=== PATIENT | female | born 1940 | race Caucasian/White ===

== ENCOUNTER 2016-05-03 10:51 | Day surgery (SDC) | payer OTHER ==
[~2016-05-03] VITALS: Ht 166.4 cm; Wt 92.0 kg
[~2016-05-03 10:51] MED LIST: AMLO5TAB2 PO; AMLO5TAB4 PO; ASPI-496 PO; ASPI-650 PO; ASPI325T4 PO; CARV6.2512 PO; CHOL500014 PO; CINN500C2 PO; FERR325T20 PO; GEMF600T3 PO; GLIP2.5T3 PO; GLIP5TAB10 PO; HYDR-3343 PO; HYDR25TA6 PO; Hydralazine Hcl PO; LEVO137T3 PO; LEVO150T PO; LEVO150T5 PO; LEVO500T33 PO; LISI-170 PO; LISI1TAB3 PO; NITR0.4T SL; NITR0.4T8 SL; PRAV20TA2 PO; PRED10TA PO; ROSU10TA PO; SEVE800T PO; SODI650T PO; TRAM-28 PO
[2016-05-03] MEDS ORDERED: BUPIVACAINE/PF-EPI 0.5% 1:200K ONE (11:37)
[2016-05-03] MEDS ORDERED: HEPARIN 1,000 UNITS/ML, 10ML ONE (11:37)
[2016-05-03] MEDS ORDERED: PROTAMINE SULFATE 10 MG/ML, 5ML ONE (11:37)
[2016-05-03] MEDS ORDERED: THROMBIN 5,000 UNIT VIAL TP ONE (11:37)
[2016-05-03] MEDS ORDERED: BUPIVACAINE/PF 0.5% ONE (11:37)
[2016-05-03] MEDS ORDERED: SODIUM CHLORIDE 0.9% 1,000 ML IV SCH (12:02)
[2016-05-03 12:03] VITALS: BP 120/74
[2016-05-03] MEDS ORDERED: CARV12.52 PO (12:19)
[2016-05-03] MEDS ORDERED: FENTANYL PF 100 MCG/2ML ONE ×2 (14:03→15:35)
[2016-05-03] MEDS ORDERED: PROPOFOL 10 MG/ML, 20ML ONE (14:21)
[2016-05-03] MEDS ORDERED: EPHEDRINE 50 MG/ML, 1ML ONE (14:21)
[2016-05-03] MEDS ORDERED: ROCURONIUM 10 MG/ML ONE (14:21)
[2016-05-03] MEDS ORDERED: CEFAZOLIN 1,000 MG ONE (14:21)
[2016-05-03] MEDS ORDERED: ONDANSETRON 2MG/ML, 2ML ONE (14:21)
[2016-05-03] MEDS ORDERED: BUPIVACAINE/PF-EPI 0.5% 1:200K INFIL ONE (14:47)
[2016-05-03] MEDS ORDERED: HEPARIN 1,000 UNITS/ML, 10ML IV ONE (14:48)
[2016-05-03] MEDS ORDERED: ACETAMINOPHEN 650 MG/20.3 ML UDC ONE (15:40)
[2016-05-03] MEDS ORDERED: OXYcodone 5 MG/5 ML ORAL.SOL UDC PO PRN ×2 (16:00→17:30)
[2016-05-03] MEDS ORDERED: ALBUTEROL/IPRATROPIUM 2.5MG/0.5MG, 3 ML NPPB PRN (16:00)
[2016-05-03] MEDS ORDERED: HYDROmorphone 1 MG/ML, 1ML IV PRN (16:00)
[2016-05-03] MEDS ORDERED: ACETAMINOPHEN 325 MG TABLET PO PRN (16:00)
[2016-05-03] MEDS ORDERED: METOPROLOL 1 MG/ML, 5ML IV PRN (16:00)
[2016-05-03] MEDS ORDERED: FENTANYL PF 100 MCG/2ML IV PRN (16:00)
== END 2016-05-03 18:05 | disposition home or self-care (01) ==
LOC: OUT 10:51
PROVIDERS: ATTEND Surgery Vascular Surgery
DX: T82.41XA Breakdown (mechanical) of vascular dialysis catheter, initial encounter (principal); T82.590A Other mechanical complication of surgically created arteriovenous fistula, initial encounter; T85.691A Other mechanical complication of intraperitoneal dialysis catheter, initial encounter; I25.10 Atherosclerotic heart disease of native coronary artery without angina pectoris; E11.22 Type 2 diabetes mellitus with diabetic chronic kidney disease; I12.0 Hypertensive chronic kidney disease with stage 5 chronic kidney disease or end stage renal disease; N18.6 End stage renal disease; Z99.2 Dependence on renal dialysis; I25.2 Old myocardial infarction; Z98.42 Cataract extraction status, left eye; Z98.41 Cataract extraction status, right eye; Z96.1 Presence of intraocular lens; E89.0 Postprocedural hypothyroidism; F17.210 Nicotine dependence, cigarettes, uncomplicated; Z95.5 Presence of coronary angioplasty implant and graft; Y83.2 Surgical operation with anastomosis, bypass or graft as the cause of abnormal reaction of the patient, or of later complication, without mention of misadventure at the time of the procedure; Y83.8 Other surgical procedures as the cause of abnormal reaction of the patient, or of later complication, without mention of misadventure at the time of the procedure
CPT/HCPCS: 36415; 36581; 37607; 49422; 71010; 77001; 80047; 82962; C1751; J0690; J1644; J2405; J2704; J3010; J3490; J7030; 76000; J2720

== ENCOUNTER 2016-11-19 15:37 | Inpatient (IN) | payer OTHER ==
[~2016-11-19] VITALS: Ht 167.6 cm; Wt 76.8 kg
[~2016-11-19 15:37] MED LIST changes: +ASPI325T17 PO; -ASPI325T4 PO; +CARV12.52 PO; -CHOL500014 PO; +CHOL500045 PO; +FERR325T18 PO; -FERR325T20 PO; -LEVO500T33 PO; +LEVO500T47 PO; +NITR0.4T28 SL; -NITR0.4T8 SL; -SEVE800T PO; +SEVE800T7 PO; -TRAM-28 PO; +TRAM-47 PO
[2016-11-19] MEDS ORDERED: SODIUM CHLORIDE FLUSH 10ML SYR IVF ONE (16:00)
[2016-11-19 16:35] LABS: HEMATOCRIT 30.7 % (34.6-47.8); HEMOGLOBIN 10.6 g/dL (11.7-16.4); WHITE BLOOD COUNT 8.3 x10^3/uL (3.4-10)
[2016-11-19 16:46] LABS: BLOOD UREA NITROGEN 52 mg/dL (7-18)
[2016-11-19 16:52] LABS: ASPARTATE AMINO TRANSFERASE 12 U/L (15-37)
[2016-11-19 16:53] LABS: IS PT STATUS REG ER OR PRE ER? YES
[2016-11-19] MEDS ORDERED: MORPHINE SULFATE 4 MG/ML, 1ML ONE ×2 (17:15→19:20)
[2016-11-19] MEDS ORDERED: MORPHINE SULFATE 4 MG/ML, 1ML IVPush PRN (17:30)
[2016-11-19] MEDS ORDERED: iron DIALYCATH (18:01)
[2016-11-19] MEDS ORDERED: steroid PO (18:01)
[2016-11-19] MEDS ORDERED: ASPI-650 PO (18:01)
[2016-11-19] MEDS ORDERED: cinnamon PO (18:01)
[2016-11-19] MEDS ORDERED: PRAV40TA2 PO (18:01)
[2016-11-19] MEDS ORDERED: LEVO150T PO (18:01)
[2016-11-19] MEDS ORDERED: BISACODYL 10 MG SUPP PR PRN (18:30)
[2016-11-19] MEDS ORDERED: ACETAMINOPHEN 325 MG TABLET PO PRN (18:30)
[2016-11-19] MEDS ORDERED: ONDANSETRON 2MG/ML, 2ML IVPush PRN (18:30)
[2016-11-19] MEDS ORDERED: POLYETHYLENE GLYCOL 17 GM PACKET PO PRN (18:30)
[2016-11-19] MEDS ORDERED: GLUCAGON 1 MG IM PRN (18:30)
[2016-11-19] MEDS ORDERED: DEXTROSE 50%, 50ML SYRINGE IVPush PRN (18:30)
[2016-11-19] MEDS ORDERED: NITROGLYCERIN 0.4 MG BOTTLE (25 TABS) SL PRN (18:30)
[2016-11-19] MEDS ORDERED: morphine SULFATE 10 MG/ML, 1ML IVPush PRN (18:30)
[2016-11-19] MEDS ORDERED: DEXTROSE 4 GM TAB.CHEW PO PRN (18:30)
[2016-11-19] MEDS ORDERED: ONDANSETRON 2MG/ML, 2ML ONE (19:20)
[2016-11-19] MEDS ORDERED: CARVEDILOL 12.5 MG TABLET PO SCH (21:00)
[2016-11-19] MEDS ORDERED: PRAVASTATIN 40 MG TABLET PO SCH (21:00)
[2016-11-19 21:02] VITALS: BP 111/71
[2016-11-19] MEDS: SODIUM CHLORIDE FLUSH 10ML SYR IVF SCH ×2 (21:17→21:21)
[2016-11-19] MEDS: PLEASE ENTER WEIGHT MC SCH ×2 (21:17→21:24)
[2016-11-19] MEDS: SEVELAMER 800MG TABLET PO SCH (21:37)
[2016-11-19] MEDS ORDERED: PRAVASTATIN 40 MG PO SCH (22:00)
[2016-11-19] MEDS: HEPARIN 5,000 UNITS/ML, 1ML SQ SCH (22:29)
[2016-11-19] MEDS: INSULIN ASPART 100 UNITS/ML, PEN SQ-INSULIN SCH (22:29)
[2016-11-19] MEDS: PRAVASTATIN 40 MG TABLET HOMEMEDPO SCH (22:29)
[2016-11-19 23:13] LABS: IS PT STATUS REG ER OR PRE ER? NO
[2016-11-20 03:53] VITALS: BP 100/64
[2016-11-20] MEDS: HEPARIN 5,000 UNITS/ML, 1ML SQ SCH ×4 (04:23→22:35)
[2016-11-20 05:40] LABS: HEMATOCRIT 28.1 % (34.6-47.8); HEMOGLOBIN 9.6 g/dL (11.7-16.4); WHITE BLOOD COUNT 7.3 x10^3/uL (3.4-10)
[2016-11-20 05:53] LABS: BLOOD UREA NITROGEN 53 mg/dL (7-18)
[2016-11-20 06:00] LABS: ASPARTATE AMINO TRANSFERASE 12 U/L (15-37)
[2016-11-20 06:10] LABS: IS PT STATUS REG ER OR PRE ER? NO
[2016-11-20] MEDS: INSULIN ASPART 100 UNITS/ML, PEN SQ-INSULIN SCH ×4 (07:53→20:22)
[2016-11-20] MEDS: SEVELAMER 800MG TABLET PO SCH ×3 (08:00→17:31)
[2016-11-20] MEDS ORDERED: REGADENOSON 0.4 MG/5 ML SYRINGE ONE (08:14)
[2016-11-20] MEDS: SENNA/DOCUSATE TABLET PO SCH (08:23)
[2016-11-20 08:28] VITALS: BP 96/60
[2016-11-20] MEDS: CARVEDILOL 12.5 MG TABLET HOMEMEDPO SCH ×2 (08:37→20:25)
[2016-11-20] MEDS: ASPIRIN 81 MG TABLET EC HOMEMEDPO SCH (08:39)
[2016-11-20] MEDS: SODIUM CHLORIDE FLUSH 10ML SYR IVF SCH ×4 (08:39→20:23)
[2016-11-20] MEDS: LEVOTHYROXINE 150 MCG TABLET HOMEMEDPO SCH (08:39)
[2016-11-20] MEDS ORDERED: LEVOTHYROXINE 150 MCG PO SCH (09:00)
[2016-11-20] MEDS ORDERED: VITAMIN D3 5000 UNIT PO SCH (09:00)
[2016-11-20] MEDS ORDERED: ASPIRIN 81 MG PO SCH (09:00)
[2016-11-20] MEDS ORDERED: COREG 12.5 MG PO SCH (09:00)
[2016-11-20] MEDS ORDERED: AMLODIPINE 5 MG TABLET PO SCH ×2 (09:00)
[2016-11-20] MEDS ORDERED: LIDOCAINE/PRILOCAINE CRM W/TEG 5GM TP ONE (12:00)
[2016-11-20] MEDS ORDERED: LIDOCAINE/PRILOCAINE CRM W/TEG 5GM TP PRN (18:00)
[2016-11-20 19:55] VITALS: BP 118/68
[2016-11-20] MEDS: PRAVASTATIN 40 MG TABLET HOMEMEDPO SCH (20:25)
[2016-11-20] MEDS: CHOLECALCIFEROL 1,000 UNIT TABLET HOMEMEDPO SCH (20:25)
[2016-11-21 02:00] VITALS: BP 118/67
[2016-11-21] MEDS ORDERED: MAALOX/HYOSCYAMINE/LIDOCAINE 45 ML BTL PO ONE (05:30)
[2016-11-21 05:49] LABS: HEMATOCRIT 29.4 % (34.6-47.8); HEMOGLOBIN 10.4 g/dL (11.7-16.4); WHITE BLOOD COUNT 8.7 x10^3/uL (3.4-10)
[2016-11-21 05:58] LABS: BLOOD UREA NITROGEN 33 mg/dL (7-18)
[2016-11-21 06:08] LABS: ASPARTATE AMINO TRANSFERASE 18 U/L (15-37); FERRITIN 301.7 ng/mL (8-252); TOTAL IRON BINDING CAPACITY 246 mcg/dL (250-450)
[2016-11-21] MEDS: INSULIN ASPART 100 UNITS/ML, PEN SQ-INSULIN SCH ×2 (07:00→10:56)
[2016-11-21] MEDS: SENNA/DOCUSATE TABLET PO SCH (07:11)
[2016-11-21 07:20] VITALS: BP 96/56
[2016-11-21] MEDS: LEVOTHYROXINE 150 MCG TABLET HOMEMEDPO SCH (08:00)
[2016-11-21] MEDS ORDERED: LEVOTHYROXINE 175 MCG TABLET HOMEMEDPO SCH (08:37)
[2016-11-21] MEDS: SODIUM CHLORIDE FLUSH 10ML SYR IVF SCH ×2 (09:00→09:14)
[2016-11-21] MEDS: CHOLECALCIFEROL 1,000 UNIT TABLET HOMEMEDPO SCH (09:14)
[2016-11-21] MEDS: ASPIRIN 81 MG TABLET EC HOMEMEDPO SCH (09:15)
[2016-11-21] MEDS: SEVELAMER 800MG TABLET PO SCH ×2 (09:15→11:47)
[2016-11-21] MEDS: CARVEDILOL 12.5 MG TABLET HOMEMEDPO SCH (09:15)
[2016-11-21] MEDS ORDERED: OMEPRAZOLE 20 MG CAPSULE.DR PO SCH (09:30)
[2016-11-21] MEDS ORDERED: LEVO175T2 HOMEMEDPO (11:09)
== END 2016-11-21 13:45 | disposition home or self-care (01) | DRG 391 ==
LOC: ED 17:35 → EDIP 17:36 → ED 17:49 → 5SO 21:09 → DCLOUNGE 11-21 13:20
PROVIDERS: ADMIT Hospitalist; ATTEND Hospitalist
DX: K21.9 Gastro-esophageal reflux disease without esophagitis (principal); N18.6 End stage renal disease; I13.2 Hypertensive heart and chronic kidney disease with heart failure and with stage 5 chronic kidney disease, or end stage renal disease; E11.22 Type 2 diabetes mellitus with diabetic chronic kidney disease; J44.1 Chronic obstructive pulmonary disease with (acute) exacerbation; E44.1 Mild protein-calorie malnutrition; J98.11 Atelectasis; E66.01 Morbid (severe) obesity due to excess calories; Z66 Do not resuscitate; I50.9 Heart failure, unspecified; D53.9 Nutritional anemia, unspecified; E78.5 Hyperlipidemia, unspecified; E89.0 Postprocedural hypothyroidism; F17.210 Nicotine dependence, cigarettes, uncomplicated; I25.10 Atherosclerotic heart disease of native coronary artery without angina pectoris; I25.2 Old myocardial infarction; Z83.3 Family history of diabetes mellitus; Z95.5 Presence of coronary angioplasty implant and graft; Z99.2 Dependence on renal dialysis; Z87.01 Personal history of pneumonia (recurrent); Z90.49 Acquired absence of other specified parts of digestive tract; Z90.710 Acquired absence of both cervix and uterus; Z91.041 Radiographic dye allergy status; Z68.27 Body mass index [BMI] 27.0-27.9, adult
CPT/HCPCS: 36415; 71010; 78452; 80053; 80061; 82306; 82607; 82728; 82746; 82962; 83036; 83540; 83550; 83970; 84100; 84439; 84443; 84484; 84550; 85025; 93005; 93017; 96374; 96375; J1644; J1815; J2405; J2785; A9502; C9898

== ENCOUNTER 2016-11-28 09:40 | Inpatient (IN) | payer OTHER ==
[~2016-11-28] VITALS: Ht 165.1 cm; Wt 88.8 kg
[~2016-11-28 09:40] MED LIST changes: +LEVO175T2 HOMEMEDPO; +PRAV40TA2 PO; +cinnamon PO; +iron DIALYCATH; +steroid PO
[2016-11-28] MEDS ORDERED: SODIUM CHLORIDE 0.9% 1,000 ML IV ONE (10:16)
[2016-11-28] MEDS ORDERED: FAMOTIDINE 20 MG/2 ML ONE (10:21)
[2016-11-28] MEDS ORDERED: MORPHINE SULFATE 4 MG/ML, 1ML ONE ×2 (10:21→12:42)
[2016-11-28] MEDS ORDERED: MAALOX/HYOSCYAMINE/LIDOCAINE 45 ML BTL ONE (10:21)
[2016-11-28] MEDS ORDERED: ONDANSETRON 2MG/ML, 2ML ONE (10:21)
[2016-11-28] MEDS: MORPHINE SULFATE 4 MG/ML, 1ML IVPush PRN ×2 (10:27→12:47)
[2016-11-28] MEDS ORDERED: MAALOX/HYOSCYAMINE/LIDOCAINE 45 ML BTL PO ONE (10:30)
[2016-11-28] MEDS ORDERED: SODIUM CHLORIDE 0.9% 1,000ML IVBOLUS ONE ×2 (10:30→11:30)
[2016-11-28] MEDS ORDERED: FAMOTIDINE 20 MG/2 ML IVP ONE (10:30)
[2016-11-28] MEDS ORDERED: ONDANSETRON 2MG/ML, 2ML IVPush ONE (10:30)
[2016-11-28 11:03] LABS: HEMATOCRIT 33.3 % (34.6-47.8); HEMOGLOBIN 11.4 g/dL (11.7-16.4); WHITE BLOOD COUNT 20.3 x10^3/uL (3.4-10)
[2016-11-28 11:14] LABS: ASPARTATE AMINO TRANSFERASE 121 U/L (15-37); BLOOD UREA NITROGEN 33 mg/dL (7-18)
[2016-11-28 11:38] LABS: DIFF TOTAL CELLS COUNTED 100 CELL DIFF
[2016-11-28 11:40] LABS: ANISOCYTOSIS 1+; POLYCHROMASIA 1+; VERIFY COUNTS? YES
[2016-11-28] MEDS ORDERED: CEFOTETAN PMX 2GM/50ML 50 ML IV ONE (12:30)
[2016-11-28] MEDS ORDERED: PHARMACY MAY ADJ FOR RENAL FX MC PRN (14:00)
[2016-11-28] MEDS ORDERED: SODIUM CHLORIDE 0.45% 1,000 ML IV SCH (15:00)
[2016-11-28] MEDS ORDERED: PROMETHAZINE 25 MG/ML, 1ML IM PRN (15:00)
[2016-11-28] MEDS: morphine SULFATE 10 MG/ML, 1ML IVPush PRN ×3 (15:03→19:36)
[2016-11-28] MEDS: PIPERACILLIN/TAZO/PMX 2.25GM 50 ML IV SCH ×2 (15:03→20:24)
[2016-11-28] MEDS ORDERED: INSULIN ASPART 100 UNITS/ML, PEN SQ-INSULIN SCH (16:00)
[2016-11-28 18:48] VITALS: BP 155/65
[2016-11-28] MEDS ORDERED: FAMOTIDINE 20 MG/2 ML IVPush SCH (21:00)
[2016-11-28] MEDS: INSULIN ASPART 100 UNITS/ML, PEN SQ-INSULIN SCH (21:39)
[2016-11-29 01:03] VITALS: BP 134/75
[2016-11-29] MEDS: morphine SULFATE 10 MG/ML, 1ML IVPush PRN ×4 (02:56→18:53)
[2016-11-29] MEDS: PIPERACILLIN/TAZO/PMX 2.25GM 50 ML IV SCH ×2 (02:56→09:30)
[2016-11-29] MEDS: INSULIN ASPART 100 UNITS/ML, PEN SQ-INSULIN SCH ×4 (02:56→21:00)
[2016-11-29 05:43] LABS: HEMOGLOBIN 10.3 g/dL (11.7-16.4); WHITE BLOOD COUNT 12.7 x10^3/uL (3.4-10)
[2016-11-29 05:47] LABS: ASPARTATE AMINO TRANSFERASE 51 U/L (15-37); BLOOD UREA NITROGEN 42 mg/dL (7-18)
[2016-11-29 07:02] VITALS: BP 138/70
[2016-11-29 08:17] LABS: HEP B SURF. AB 392.2 mIU/mL (0.0-10.0)
[2016-11-29] MEDS ORDERED: LEVOTHYROXINE 100 MCG INJ IVPush SCH (09:00)
[2016-11-29] MEDS: FAMOTIDINE 20 MG/2 ML IVPush SCH (09:30)
[2016-11-29 13:55] VITALS: BP 138/75
[2016-11-29] MEDS ORDERED: PIPERACILLIN/TAZO 2.25 GM in SODIUM CHLORIDE 0.9% 50 ML IV SCH (15:00)
[2016-11-29 19:03] VITALS: BP 128/73
[2016-11-29] MEDS ORDERED: PIPERACILLIN/TAZO(ZOSYN) 2.25 GM in NS 50 ML IVPB SCH (21:00)
[2016-11-29] MEDS: PIPERACILLIN/TAZO/PMX 2.25GM 50 ML IVPB SCH (21:31)
[2016-11-30 02:05] VITALS: BP 124/63
[2016-11-30] MEDS: PIPERACILLIN/TAZO/PMX 2.25GM 50 ML IVPB SCH ×3 (03:35→21:24)
[2016-11-30] MEDS: morphine SULFATE 10 MG/ML, 1ML IVPush PRN ×5 (03:46→20:20)
[2016-11-30 05:58] LABS: HEMOGLOBIN 10.2 g/dL (11.7-16.4); WHITE BLOOD COUNT 12.3 x10^3/uL (3.4-10)
[2016-11-30 06:32] LABS: ASPARTATE AMINO TRANSFERASE 20 U/L (15-37); BLOOD UREA NITROGEN 25 mg/dL (7-18); FERRITIN 630.1 ng/mL (8-252); TOTAL IRON BINDING CAPACITY 235 mcg/dL (250-450)
[2016-11-30 06:37] LABS: DIFF TOTAL CELLS COUNTED 100 CELL DIFF
[2016-11-30 06:38] LABS: VERIFY COUNTS? YES
[2016-11-30 06:39] LABS: ANISOCYTOSIS 1+
[2016-11-30 06:56] VITALS: BP 146/64
[2016-11-30] MEDS: FAMOTIDINE 20 MG/2 ML IVPush SCH (08:26)
[2016-11-30] MEDS: INSULIN ASPART 100 UNITS/ML, PEN SQ-INSULIN SCH ×4 (08:27→20:22)
[2016-11-30] MEDS: AMLODIPINE 5 MG TABLET PO SCH (09:00)
[2016-11-30] MEDS: CARVEDILOL 12.5 MG TABLET PO SCH ×2 (09:33→20:21)
[2016-11-30] MEDS: DOCUSATE 100 MG CAPSULE PO SCH ×2 (10:30→20:20)
[2016-11-30] MEDS ORDERED: BISACODYL 10 MG SUPP PR PRN (10:30)
[2016-11-30] MEDS ORDERED: SEVELAMER 800MG TABLET PO SCH (12:00)
[2016-11-30] MEDS: ONDANSETRON 2MG/ML, 2ML IVPush PRN ×2 (13:45→20:20)
[2016-11-30] MEDS: IRON SUCROSE COMPLEX 100MG/5ML IV SCH (13:48)
[2016-11-30 13:50] VITALS: BP 94/61
[2016-11-30] MEDS: SEVELAMER 800MG TABLET PO SCH (17:00)
[2016-11-30 19:18] VITALS: BP 105/64
[2016-11-30] MEDS: PRAVASTATIN 40 MG TABLET PO SCH (20:21)
[2016-12-01] MEDS: morphine SULFATE 10 MG/ML, 1ML IVPush PRN (00:16)
[2016-12-01 02:40] VITALS: BP 121/68
[2016-12-01] MEDS: PIPERACILLIN/TAZO/PMX 2.25GM 50 ML IVPB SCH ×3 (04:20→23:36)
[2016-12-01] MEDS: LEVOTHYROXINE 175 MCG TABLET HOMEMEDPO SCH (06:00)
[2016-12-01 06:20] LABS: HEMATOCRIT 27.7 % (34.6-47.8); HEMOGLOBIN 9.7 g/dL (11.7-16.4); WHITE BLOOD COUNT 12.5 x10^3/uL (3.4-10)
[2016-12-01 06:35] LABS: ASPARTATE AMINO TRANSFERASE 14 U/L (15-37); BLOOD UREA NITROGEN 46 mg/dL (7-18)
[2016-12-01] MEDS: INSULIN ASPART 100 UNITS/ML, PEN SQ-INSULIN SCH ×4 (07:00→21:00)
[2016-12-01] MEDS ORDERED: FENTANYL PF 100 MCG/2ML ONE ×2 (07:03)
[2016-12-01] MEDS ORDERED: MIDAZOLAM 1 MG/ML, 2ML ONE (07:03)
[2016-12-01] MEDS ORDERED: PROPOFOL 10 MG/ML, 20ML ONE (07:04)
[2016-12-01] MEDS ORDERED: DEXAMETHASONE 4 MG/ML, 1ML ONE (07:04)
[2016-12-01] MEDS ORDERED: ROCURONIUM 10 MG/ML ONE (07:04)
[2016-12-01] MEDS ORDERED: ONDANSETRON 2MG/ML, 2ML ONE (07:04)
[2016-12-01] MEDS ORDERED: SUCCINYLCHOLINE 20 MG/ML, 10ML ONE (07:04)
[2016-12-01] MEDS ORDERED: BUPIVACAINE/PF 0.5% ONE (07:06)
[2016-12-01] MEDS ORDERED: EPINEPHRINE 1 MG/ML, 1ML ONE (07:06)
[2016-12-01] MEDS ORDERED: BUPIVACAINE/PF-EPI 0.5% 1:200K INFIL ONE (07:38)
[2016-12-01] MEDS ORDERED: hydrALAzine 20 MG/ML, 1ML IV PRN (08:00)
[2016-12-01] MEDS ORDERED: LABETALOL 5MG/ML, 20ML IV PRN (08:00)
[2016-12-01] MEDS ORDERED: ACETAMINOPHEN 325 MG TABLET PO PRN (08:00)
[2016-12-01] MEDS ORDERED: OXYcodone 5 MG/5 ML ORAL.SOL UDC PO PRN (08:00)
[2016-12-01] MEDS ORDERED: HYDROmorphone 1 MG/ML, 1ML IV PRN (08:00)
[2016-12-01] MEDS: SEVELAMER 800MG TABLET PO SCH ×3 (08:00→19:30)
[2016-12-01] MEDS ORDERED: ONDANSETRON 2MG/ML, 2ML IVPush PRN (08:00)
[2016-12-01] MEDS ORDERED: FENTANYL PF 100 MCG/2ML IV PRN (08:00)
[2016-12-01] MEDS: CARVEDILOL 12.5 MG TABLET PO SCH ×2 (09:00→22:10)
[2016-12-01] MEDS: DOCUSATE 100 MG CAPSULE PO SCH ×2 (09:00→22:10)
[2016-12-01] MEDS: AMLODIPINE 5 MG TABLET PO SCH (09:00)
[2016-12-01] MEDS: FAMOTIDINE 20 MG/2 ML IVPush SCH (09:00)
[2016-12-01] MEDS ORDERED: OXYcodone 5 MG/5 ML ORAL.SOL UDC ONE (09:35)
[2016-12-01 13:26] VITALS: BP 109/68
[2016-12-01 20:22] VITALS: BP 122/72
[2016-12-01] MEDS: PRAVASTATIN 40 MG TABLET PO SCH (22:10)
[2016-12-01] MEDS: IRON SUCROSE COMPLEX 100MG/5ML IV SCH (22:11)
[2016-12-02 00:50] VITALS: BP 131/62
[2016-12-02] MEDS: LEVOTHYROXINE 175 MCG TABLET HOMEMEDPO SCH (06:00)
[2016-12-02 06:53] LABS: HEMATOCRIT 26.8 % (34.6-47.8); HEMOGLOBIN 9.2 g/dL (11.7-16.4); WHITE BLOOD COUNT 10.4 x10^3/uL (3.4-10)
[2016-12-02] MEDS: INSULIN ASPART 100 UNITS/ML, PEN SQ-INSULIN SCH ×4 (07:00→21:00)
[2016-12-02 07:07] LABS: BLOOD UREA NITROGEN 32 mg/dL (7-18)
[2016-12-02 08:00] VITALS: BP 149/66
[2016-12-02] MEDS: SEVELAMER 800MG TABLET PO SCH ×3 (08:00→16:58)
[2016-12-02] MEDS: FAMOTIDINE 20 MG/2 ML IVPush SCH (08:51)
[2016-12-02] MEDS: AMLODIPINE 5 MG TABLET PO SCH (08:52)
[2016-12-02] MEDS: DOCUSATE 100 MG CAPSULE PO SCH ×2 (08:52→21:07)
[2016-12-02] MEDS: CARVEDILOL 12.5 MG TABLET PO SCH ×2 (08:52→21:07)
[2016-12-02] MEDS ORDERED: MORPHINE SULFATE 4 MG/ML, 1ML ONE ×4 (09:14→17:23)
[2016-12-02] MEDS: morphine SULFATE 10 MG/ML, 1ML IVPush PRN ×5 (09:16→20:35)
[2016-12-02] MEDS: PIPERACILLIN/TAZO/PMX 2.25GM 50 ML IVPB SCH ×2 (12:28→23:41)
[2016-12-02] MEDS: HYDROcodone/APAP 5/325 TABLET PO PRN ×3 (12:28→21:11)
[2016-12-02 12:46] VITALS: BP 118/67
[2016-12-02 20:03] VITALS: BP 145/78
[2016-12-02] MEDS: IRON SUCROSE COMPLEX 100MG/5ML IV SCH (20:36)
[2016-12-02] MEDS: PRAVASTATIN 40 MG TABLET PO SCH (21:00)
[2016-12-02] MEDS ORDERED: FAMOTIDINE 20 MG TABLET PO SCH (22:00)
[2016-12-02] MEDS ORDERED: OXYcodone IR 5MG TABLET PO PRN (22:00)
[2016-12-03 01:35] VITALS: BP 135/71
[2016-12-03 04:52] LABS: HEMATOCRIT 27.8 % (34.6-47.8); HEMOGLOBIN 9.7 g/dL (11.7-16.4); WHITE BLOOD COUNT 10.6 x10^3/uL (3.4-10)
[2016-12-03 05:03] LABS: BLOOD UREA NITROGEN 45 mg/dL (7-18)
[2016-12-03] MEDS: morphine SULFATE 10 MG/ML, 1ML IVPush PRN (05:12)
[2016-12-03] MEDS: LEVOTHYROXINE 175 MCG TABLET HOMEMEDPO SCH (05:13)
[2016-12-03] MEDS: CALCIUM CARBONATE 500 MG TAB.CHEW PO PRN (05:13)
[2016-12-03 05:40] LABS: DIFF TOTAL CELLS COUNTED 100 CELL DIFF
[2016-12-03 05:42] LABS: VERIFY COUNTS? YES
[2016-12-03 05:43] LABS: ANISOCYTOSIS 1+
[2016-12-03] MEDS: INSULIN ASPART 100 UNITS/ML, PEN SQ-INSULIN SCH ×4 (07:00→19:54)
[2016-12-03 07:43] VITALS: BP 125/55
[2016-12-03] MEDS: SEVELAMER 800MG TABLET PO SCH ×3 (08:00→18:21)
[2016-12-03] MEDS: DOCUSATE 100 MG CAPSULE PO SCH ×2 (08:20→20:11)
[2016-12-03] MEDS: AMLODIPINE 5 MG TABLET PO SCH (08:20)
[2016-12-03] MEDS: CARVEDILOL 12.5 MG TABLET PO SCH ×2 (08:20→20:11)
[2016-12-03] MEDS: FAMOTIDINE 20 MG/2 ML IVPush SCH (08:20)
[2016-12-03] MEDS: PIPERACILLIN/TAZO/PMX 2.25GM 50 ML IVPB SCH ×2 (11:26→23:33)
[2016-12-03 12:45] VITALS: BP 130/52
[2016-12-03 19:07] VITALS: BP 146/75
[2016-12-03 20:09] VITALS: BP 118/69
[2016-12-03] MEDS: IRON SUCROSE COMPLEX 100MG/5ML IV SCH (20:11)
[2016-12-03] MEDS: PRAVASTATIN 40 MG TABLET PO SCH (20:11)
[2016-12-04 01:42] VITALS: BP 93/59
[2016-12-04 05:15] LABS: HEMATOCRIT 26.1 % (34.6-47.8); HEMOGLOBIN 9.1 g/dL (11.7-16.4); WHITE BLOOD COUNT 12.8 x10^3/uL (3.4-10)
[2016-12-04 05:21] LABS: ASPARTATE AMINO TRANSFERASE 32 U/L (15-37); BLOOD UREA NITROGEN 21 mg/dL (7-18)
[2016-12-04] MEDS: LEVOTHYROXINE 175 MCG TABLET HOMEMEDPO SCH (05:42)
[2016-12-04 05:52] LABS: DIFF TOTAL CELLS COUNTED 100 CELL DIFF
[2016-12-04 05:53] LABS: VERIFY COUNTS? YES
[2016-12-04] MEDS: INSULIN ASPART 100 UNITS/ML, PEN SQ-INSULIN SCH ×4 (07:00→21:00)
[2016-12-04] MEDS: SEVELAMER 800MG TABLET PO SCH ×3 (08:00→16:36)
[2016-12-04 08:20] VITALS: BP 129/66
[2016-12-04] MEDS: CARVEDILOL 12.5 MG TABLET PO SCH ×2 (09:00→21:00)
[2016-12-04] MEDS: AMLODIPINE 5 MG TABLET PO SCH (09:00)
[2016-12-04] MEDS: DOCUSATE 100 MG CAPSULE PO SCH (09:00)
[2016-12-04] MEDS: FAMOTIDINE 20 MG TABLET PO SCH (10:00)
[2016-12-04] MEDS: PIPERACILLIN/TAZO/PMX 2.25GM 50 ML IVPB SCH ×2 (12:58→23:30)
[2016-12-04 13:50] VITALS: BP 152/72
[2016-12-04] MEDS ORDERED: MORPHINE SULFATE 4 MG/ML, 1ML IVPush PRN (14:00)
[2016-12-04] MEDS: BISACODYL 10 MG SUPP PR SCH (14:27)
[2016-12-04] MEDS: MORPHINE SULFATE 4 MG/ML, 1ML IVPush PRN ×2 (18:23→22:37)
[2016-12-04 20:24] VITALS: BP 129/70
[2016-12-04] MEDS ORDERED: LABETALOL 5MG/ML, 20ML IVPush PRN (20:30)
[2016-12-04] MEDS: PRAVASTATIN 40 MG TABLET PO SCH (21:00)
[2016-12-04] MEDS: IRON SUCROSE COMPLEX 100MG/5ML IV SCH (21:19)
[2016-12-05 02:00] VITALS: BP 116/70
[2016-12-05] MEDS: LEVOTHYROXINE 175 MCG TABLET HOMEMEDPO SCH (04:41)
[2016-12-05] MEDS: MORPHINE SULFATE 4 MG/ML, 1ML IVPush PRN (05:43)
[2016-12-05] MEDS: INSULIN ASPART 100 UNITS/ML, PEN SQ-INSULIN SCH ×4 (07:00→20:14)
[2016-12-05 07:41] VITALS: BP 135/72
[2016-12-05] MEDS: SEVELAMER 800MG TABLET PO SCH ×3 (08:00→17:00)
[2016-12-05] MEDS: FAMOTIDINE 20 MG TABLET PO SCH (09:00)
[2016-12-05] MEDS: AMLODIPINE 5 MG TABLET PO SCH (09:00)
[2016-12-05] MEDS: CARVEDILOL 12.5 MG TABLET PO SCH ×2 (09:00→20:41)
[2016-12-05] MEDS: BISACODYL 10 MG SUPP PR SCH (09:02)
[2016-12-05] MEDS: HEPARIN 5,000 UNITS/ML, 1ML SQ SCH ×2 (09:52→18:37)
[2016-12-05 10:36] LABS: ASPARTATE AMINO TRANSFERASE 25 U/L (15-37); BLOOD UREA NITROGEN 37 mg/dL (7-18)
[2016-12-05 11:10] LABS: HEMATOCRIT 28.3 % (34.6-47.8); HEMOGLOBIN 9.7 g/dL (11.7-16.4); WHITE BLOOD COUNT 15.4 x10^3/uL (3.4-10)
[2016-12-05] MEDS: PIPERACILLIN/TAZO/PMX 2.25GM 50 ML IVPB SCH ×2 (11:22→23:30)
[2016-12-05 13:39] VITALS: BP 145/72
[2016-12-05] MEDS: ONDANSETRON ODT 4 MG PO PRN (15:45)
[2016-12-05 19:39] VITALS: BP 147/71
[2016-12-05] MEDS: PRAVASTATIN 40 MG TABLET PO SCH (20:41)
[2016-12-06 01:44] VITALS: BP 124/78
[2016-12-06] MEDS: HEPARIN 5,000 UNITS/ML, 1ML SQ SCH ×3 (05:36→23:45)
[2016-12-06] MEDS: LEVOTHYROXINE 175 MCG TABLET HOMEMEDPO SCH (06:00)
[2016-12-06 06:31] LABS: HEMOGLOBIN 9.6 g/dL (11.7-16.4); WHITE BLOOD COUNT 17.8 x10^3/uL (3.4-10)
[2016-12-06 06:54] LABS: BLOOD UREA NITROGEN 20 mg/dL (7-18)
[2016-12-06] MEDS: INSULIN ASPART 100 UNITS/ML, PEN SQ-INSULIN SCH ×4 (07:00→20:19)
[2016-12-06 07:19] LABS: DIFF TOTAL CELLS COUNTED 100 CELL DIFF
[2016-12-06 07:21] VITALS: BP 131/72
[2016-12-06 07:21] LABS: VERIFY COUNTS? YES
[2016-12-06 07:22] LABS: LARGE PLATELETS 1+
[2016-12-06] MEDS: SEVELAMER 800MG TABLET PO SCH ×3 (08:00→16:15)
[2016-12-06] MEDS: CARVEDILOL 12.5 MG TABLET PO SCH ×2 (08:10→20:19)
[2016-12-06] MEDS: AMLODIPINE 5 MG TABLET PO SCH (08:10)
[2016-12-06] MEDS: FAMOTIDINE 20 MG TABLET PO SCH (08:10)
[2016-12-06] MEDS: BISACODYL 10 MG SUPP PR SCH (08:15)
[2016-12-06] MEDS: CALCIUM CARBONATE 500 MG TAB.CHEW PO PRN (10:31)
[2016-12-06] MEDS: PIPERACILLIN/TAZO/PMX 2.25GM 50 ML IVPB SCH ×2 (11:45→23:44)
[2016-12-06 14:12] VITALS: BP 134/76
[2016-12-06] MEDS: PRAVASTATIN 40 MG TABLET PO SCH (20:19)
[2016-12-06 20:31] VITALS: BP 139/58
[2016-12-07 01:32] VITALS: BP 125/51
[2016-12-07] MEDS: ONDANSETRON 2MG/ML, 2ML IVPush PRN ×2 (04:05→20:40)
[2016-12-07 05:37] LABS: HEMATOCRIT 28.1 % (34.6-47.8); HEMOGLOBIN 9.6 g/dL (11.7-16.4); WHITE BLOOD COUNT 16.2 x10^3/uL (3.4-10)
[2016-12-07] MEDS: LEVOTHYROXINE 175 MCG TABLET HOMEMEDPO SCH (06:00)
[2016-12-07 06:02] LABS: ASPARTATE AMINO TRANSFERASE 26 U/L (15-37); BLOOD UREA NITROGEN 30 mg/dL (7-18)
[2016-12-07] MEDS: HEPARIN 5,000 UNITS/ML, 1ML SQ SCH ×3 (06:34→21:37)
[2016-12-07] MEDS: INSULIN ASPART 100 UNITS/ML, PEN SQ-INSULIN SCH ×4 (07:00→20:26)
[2016-12-07 07:35] VITALS: BP 148/72
[2016-12-07] MEDS: SEVELAMER 800MG TABLET PO SCH ×3 (08:00→17:00)
[2016-12-07] MEDS: FAMOTIDINE 20 MG TABLET PO SCH (08:46)
[2016-12-07] MEDS: CARVEDILOL 12.5 MG TABLET PO SCH ×2 (08:48→20:39)
[2016-12-07] MEDS: AMLODIPINE 5 MG TABLET PO SCH (08:48)
[2016-12-07] MEDS ORDERED: PHARMACY MAY ADJ FOR RENAL FX MC PRN (12:30)
[2016-12-07] MEDS: PIPERACILLIN/TAZO/PMX 2.25GM 50 ML IVPB SCH ×2 (12:53→18:00)
[2016-12-07] MEDS ORDERED: FLUCONAZOLE 200 MG/100 ML 100 ML IV ONE (13:00)
[2016-12-07 13:30] VITALS: BP 153/61
[2016-12-07] MEDS: BISACODYL 10 MG SUPP PR SCH (17:26)
[2016-12-07] MEDS: POLYETHYLENE GLYCOL 17 GM PACKET PO SCH (17:26)
[2016-12-07 18:46] VITALS: BP 170/77
[2016-12-07] MEDS: PRAVASTATIN 40 MG TABLET PO SCH (23:04)
[2016-12-08 00:47] VITALS: BP 152/79
[2016-12-08] MEDS: PIPERACILLIN/TAZO/PMX 2.25GM 50 ML IVPB SCH ×2 (05:32→18:31)
[2016-12-08] MEDS: HEPARIN 5,000 UNITS/ML, 1ML SQ SCH ×3 (05:32→21:03)
[2016-12-08] MEDS: LEVOTHYROXINE 175 MCG TABLET PO SCH (05:32)
[2016-12-08 06:09] LABS: HEMATOCRIT 27.3 % (34.6-47.8); HEMOGLOBIN 9.5 g/dL (11.7-16.4)
[2016-12-08 06:20] LABS: BLOOD UREA NITROGEN 17 mg/dL (7-18)
[2016-12-08] MEDS: INSULIN ASPART 100 UNITS/ML, PEN SQ-INSULIN SCH ×4 (07:00→21:04)
[2016-12-08 07:26] VITALS: BP 138/73
[2016-12-08] MEDS: SEVELAMER 800MG TABLET PO SCH ×4 (08:00→20:00)
[2016-12-08] MEDS ORDERED: FLUCONAZOLE 100 MG TABLET PO SCH (09:00)
[2016-12-08] MEDS: FAMOTIDINE 20 MG TABLET PO SCH (09:23)
[2016-12-08] MEDS: AMLODIPINE 5 MG TABLET PO SCH (09:23)
[2016-12-08] MEDS: BISACODYL 10 MG SUPP PR SCH (09:23)
[2016-12-08] MEDS: CARVEDILOL 12.5 MG TABLET PO SCH ×2 (09:23→21:03)
[2016-12-08] MEDS: POLYETHYLENE GLYCOL 17 GM PACKET PO SCH (09:23)
[2016-12-08] MEDS ORDERED: ARANESP 100 MCG/ML **ESRD SQ SCH (11:00)
[2016-12-08 13:31] VITALS: BP 124/44
[2016-12-08] MEDS: FLUCONAZOLE 100MG/50ML 100 MG in BAG 1 EACH IVPB SCH (17:05)
[2016-12-08 19:12] VITALS: BP 131/66
[2016-12-08] MEDS: PRAVASTATIN 40 MG TABLET PO SCH (21:03)
[2016-12-09 00:36] VITALS: BP 149/72
[2016-12-09] MEDS: SEVELAMER 800MG TABLET PO SCH ×4 (04:45→17:00)
[2016-12-09 04:59] LABS: HEMATOCRIT 26.3 % (34.6-47.8); HEMOGLOBIN 9.3 g/dL (11.7-16.4); WHITE BLOOD COUNT 12.6 x10^3/uL (3.4-10)
[2016-12-09 05:11] LABS: BLOOD UREA NITROGEN 29 mg/dL (7-18)
[2016-12-09 05:58] LABS: DIFF TOTAL CELLS COUNTED 100 CELL DIFF
[2016-12-09] MEDS: PIPERACILLIN/TAZO/PMX 2.25GM 50 ML IVPB SCH ×2 (05:58→18:26)
[2016-12-09] MEDS: LEVOTHYROXINE 175 MCG TABLET PO SCH (05:58)
[2016-12-09] MEDS: HEPARIN 5,000 UNITS/ML, 1ML SQ SCH ×3 (05:59→21:05)
[2016-12-09 06:00] LABS: VERIFY COUNTS? YES
[2016-12-09 08:00] VITALS: BP 124/66
[2016-12-09] MEDS: AMLODIPINE 5 MG TABLET PO SCH (08:59)
[2016-12-09] MEDS: FAMOTIDINE 20 MG TABLET PO SCH (08:59)
[2016-12-09] MEDS: CARVEDILOL 12.5 MG TABLET PO SCH ×3 (09:00→21:05)
[2016-12-09] MEDS: POLYETHYLENE GLYCOL 17 GM PACKET PO SCH (09:00)
[2016-12-09] MEDS: INSULIN ASPART 100 UNITS/ML, PEN SQ-INSULIN SCH ×4 (09:01→20:50)
[2016-12-09] MEDS: BISACODYL 10 MG SUPP PR SCH (09:01)
[2016-12-09 12:45] VITALS: BP 127/67
[2016-12-09] MEDS: FLUCONAZOLE 100MG/50ML 100 MG in BAG 1 EACH IVPB SCH (16:20)
[2016-12-09] MEDS ORDERED: BISACODYL 10 MG SUPP PR PRN (17:30)
[2016-12-09] MEDS ORDERED: POLYETHYLENE GLYCOL 17 GM PACKET PO PRN (17:30)
[2016-12-09] MEDS: HYDROcodone/APAP 5/325 TABLET PO PRN ×2 (18:31→23:52)
[2016-12-09 18:50] VITALS: BP 139/65
[2016-12-09] MEDS: LINEZOLID 600 MG TABLET PO SCH (21:05)
[2016-12-09] MEDS: PRAVASTATIN 40 MG TABLET PO SCH (21:05)
[2016-12-10 02:38] VITALS: BP 137/60
[2016-12-10] MEDS: HYDROcodone/APAP 5/325 TABLET PO PRN ×5 (04:23→21:15)
[2016-12-10 05:38] LABS: HEMOGLOBIN 9.4 g/dL (11.7-16.4); WHITE BLOOD COUNT 11.6 x10^3/uL (3.4-10)
[2016-12-10 05:50] LABS: BLOOD UREA NITROGEN 37 mg/dL (7-18)
[2016-12-10] MEDS: LEVOTHYROXINE 175 MCG TABLET PO SCH (06:11)
[2016-12-10] MEDS: HEPARIN 5,000 UNITS/ML, 1ML SQ SCH ×3 (06:11→21:15)
[2016-12-10] MEDS: PIPERACILLIN/TAZO/PMX 2.25GM 50 ML IVPB SCH ×2 (06:11→18:08)
[2016-12-10] MEDS: INSULIN ASPART 100 UNITS/ML, PEN SQ-INSULIN SCH ×4 (07:00→20:16)
[2016-12-10 08:39] VITALS: BP 131/57
[2016-12-10] MEDS: LINEZOLID 600 MG TABLET PO SCH ×2 (08:41→20:15)
[2016-12-10] MEDS: FAMOTIDINE 20 MG TABLET PO SCH (08:41)
[2016-12-10] MEDS: CARVEDILOL 12.5 MG TABLET PO SCH ×2 (08:42→20:16)
[2016-12-10] MEDS: AMLODIPINE 5 MG TABLET PO SCH (08:42)
[2016-12-10] MEDS: SEVELAMER 800MG TABLET PO SCH ×3 (08:42→17:56)
[2016-12-10] MEDS: ONDANSETRON 2MG/ML, 2ML IVPush PRN (08:48)
[2016-12-10 13:55] VITALS: BP 155/68
[2016-12-10] MEDS: FLUCONAZOLE 100MG/50ML 100 MG in BAG 1 EACH IVPB SCH (17:09)
[2016-12-10 20:08] VITALS: BP 144/64
[2016-12-10] MEDS: PRAVASTATIN 40 MG TABLET PO SCH (20:15)
[2016-12-10] MEDS ORDERED: LIDOCAINE/PRILOCAINE CRM W/TEG 5GM TP ONE (21:00)
[2016-12-11] MEDS: HYDROcodone/APAP 5/325 TABLET PO PRN ×4 (02:45→17:24)
[2016-12-11 02:46] VITALS: BP 118/55
[2016-12-11 05:07] LABS: HEMATOCRIT 26.1 % (34.6-47.8); HEMOGLOBIN 8.8 g/dL (11.7-16.4); WHITE BLOOD COUNT 9.7 x10^3/uL (3.4-10)
[2016-12-11 05:28] LABS: BLOOD UREA NITROGEN 22 mg/dL (7-18)
[2016-12-11] MEDS: HEPARIN 5,000 UNITS/ML, 1ML SQ SCH ×3 (05:43→22:39)
[2016-12-11] MEDS: PIPERACILLIN/TAZO/PMX 2.25GM 50 ML IVPB SCH ×2 (05:43→17:24)
[2016-12-11] MEDS: LEVOTHYROXINE 175 MCG TABLET PO SCH (05:43)
[2016-12-11] MEDS: INSULIN ASPART 100 UNITS/ML, PEN SQ-INSULIN SCH ×4 (07:51→20:58)
[2016-12-11] MEDS: ONDANSETRON 2MG/ML, 2ML IVPush PRN (07:53)
[2016-12-11] MEDS: SEVELAMER 800MG TABLET PO SCH ×3 (09:21→17:43)
[2016-12-11] MEDS: FAMOTIDINE 20 MG TABLET PO SCH (09:23)
[2016-12-11] MEDS: AMLODIPINE 5 MG TABLET PO SCH (09:23)
[2016-12-11] MEDS: CARVEDILOL 12.5 MG TABLET PO SCH ×2 (09:24→20:58)
[2016-12-11] MEDS: LINEZOLID 600 MG TABLET PO SCH ×2 (09:24→21:02)
[2016-12-11 09:26] VITALS: BP 162/80
[2016-12-11 12:45] VITALS: BP 152/64
[2016-12-11] MEDS: ONDANSETRON ODT 4 MG PO PRN (13:41)
[2016-12-11] MEDS: FLUCONAZOLE 100MG/50ML 100 MG in BAG 1 EACH IVPB SCH (15:42)
[2016-12-11 20:00] VITALS: BP 136/55
[2016-12-11] MEDS: PRAVASTATIN 40 MG TABLET PO SCH (21:02)
[2016-12-12 02:00] VITALS: BP 135/52
[2016-12-12] MEDS: HYDROcodone/APAP 5/325 TABLET PO PRN ×3 (03:38→15:34)
[2016-12-12] MEDS: ONDANSETRON 2MG/ML, 2ML IVPush PRN ×2 (03:39→09:52)
[2016-12-12 05:50] LABS: HEMATOCRIT 26.3 % (34.6-47.8); HEMOGLOBIN 9.1 g/dL (11.7-16.4); WHITE BLOOD COUNT 9.6 x10^3/uL (3.4-10)
[2016-12-12] MEDS: HEPARIN 5,000 UNITS/ML, 1ML SQ SCH ×3 (06:00→22:08)
[2016-12-12 06:01] LABS: BLOOD UREA NITROGEN 32 mg/dL (7-18)
[2016-12-12] MEDS: PIPERACILLIN/TAZO/PMX 2.25GM 50 ML IVPB SCH ×2 (06:24→18:46)
[2016-12-12] MEDS: LEVOTHYROXINE 175 MCG TABLET PO SCH (06:24)
[2016-12-12] MEDS: INSULIN ASPART 100 UNITS/ML, PEN SQ-INSULIN SCH ×4 (07:00→20:09)
[2016-12-12 07:24] VITALS: BP 157/69
[2016-12-12] MEDS: SEVELAMER 800MG TABLET PO SCH ×3 (08:00→17:00)
[2016-12-12] MEDS: AMLODIPINE 5 MG TABLET PO SCH (09:00)
[2016-12-12] MEDS: CARVEDILOL 12.5 MG TABLET PO SCH ×2 (09:00→20:09)
[2016-12-12] MEDS: FAMOTIDINE 20 MG TABLET PO SCH (09:53)
[2016-12-12] MEDS: LINEZOLID 600 MG TABLET PO SCH ×2 (09:53→20:08)
[2016-12-12] MEDS: FLUCONAZOLE 100MG/50ML 100 MG in BAG 1 EACH IVPB SCH (16:33)
[2016-12-12 16:56] VITALS: BP 156/68
[2016-12-12 20:06] VITALS: BP 137/65
[2016-12-12] MEDS: PRAVASTATIN 40 MG TABLET PO SCH (20:09)
[2016-12-13 02:04] VITALS: BP 148/77
[2016-12-13 05:54] LABS: HEMATOCRIT 27.7 % (34.6-47.8); HEMOGLOBIN 9.5 g/dL (11.7-16.4)
[2016-12-13 06:02] LABS: BLOOD UREA NITROGEN 18 mg/dL (7-18)
[2016-12-13] MEDS: PIPERACILLIN/TAZO/PMX 2.25GM 50 ML IVPB SCH ×2 (06:11→17:06)
[2016-12-13] MEDS: LEVOTHYROXINE 175 MCG TABLET PO SCH (06:11)
[2016-12-13] MEDS: HEPARIN 5,000 UNITS/ML, 1ML SQ SCH ×3 (06:14→20:57)
[2016-12-13] MEDS: INSULIN ASPART 100 UNITS/ML, PEN SQ-INSULIN SCH ×4 (07:00→20:57)
[2016-12-13 07:45] VITALS: BP 157/70
[2016-12-13] MEDS: SEVELAMER 800MG TABLET PO SCH ×3 (08:00→16:21)
[2016-12-13] MEDS: LINEZOLID 600 MG TABLET PO SCH ×2 (08:09→20:57)
[2016-12-13] MEDS: FAMOTIDINE 20 MG TABLET PO SCH (08:09)
[2016-12-13] MEDS: AMLODIPINE 5 MG TABLET PO SCH (08:09)
[2016-12-13] MEDS: CARVEDILOL 12.5 MG TABLET PO SCH ×2 (08:10→20:57)
[2016-12-13 13:08] VITALS: BP 133/67
[2016-12-13] MEDS: FLUCONAZOLE 100MG/50ML 100 MG in BAG 1 EACH IVPB SCH (15:51)
[2016-12-13 20:53] VITALS: BP 145/65
[2016-12-13] MEDS: PRAVASTATIN 40 MG TABLET PO SCH (20:57)
[2016-12-14 00:51] VITALS: BP 149/69
[2016-12-14] MEDS: LEVOTHYROXINE 175 MCG TABLET PO SCH (05:14)
[2016-12-14] MEDS: HEPARIN 5,000 UNITS/ML, 1ML SQ SCH ×2 (05:15→13:19)
[2016-12-14] MEDS: PIPERACILLIN/TAZO/PMX 2.25GM 50 ML IVPB SCH (05:15)
[2016-12-14 05:26] LABS: BLOOD UREA NITROGEN 31 mg/dL (7-18)
[2016-12-14] MEDS: INSULIN ASPART 100 UNITS/ML, PEN SQ-INSULIN SCH ×3 (07:00→16:40)
[2016-12-14 07:25] VITALS: BP 150/72
[2016-12-14] MEDS: SEVELAMER 800MG TABLET PO SCH ×3 (08:00→16:40)
[2016-12-14] MEDS: FAMOTIDINE 20 MG TABLET PO SCH (08:24)
[2016-12-14] MEDS: CARVEDILOL 12.5 MG TABLET PO SCH (08:24)
[2016-12-14] MEDS: LINEZOLID 600 MG TABLET PO SCH (08:24)
[2016-12-14] MEDS: AMLODIPINE 5 MG TABLET PO SCH (08:25)
[2016-12-14] MEDS ORDERED: FLU VACC QS2017-18 (36MOS+) UP/PF 0.5 ML IM-VACC ONE (12:30)
[2016-12-14 13:35] VITALS: BP 134/60
[2016-12-14] MEDS: FLUCONAZOLE 100MG/50ML 100 MG in BAG 1 EACH IVPB SCH (16:40)
== END 2016-12-14 18:15 | disposition home or self-care (01) | DRG 853 ==
LOC: ED 10:01 → EDIP 12:30 → 4NOR 14:01 → 4EST 11-29 22:55
PROVIDERS: ADMIT Hospitalist; ATTEND Internal Medicine
PROC: 5A1D70Z Performance of Urinary Filtration, Intermittent, Less than 6 Hours Per Day (ICD-10-PCS; 2016-11-29)
PROC: 5A1D70Z Performance of Urinary Filtration, Intermittent, Less than 6 Hours Per Day (ICD-10-PCS; 2016-12-01)
PROC: 0FT44ZZ Resection of Gallbladder, Percutaneous Endoscopic Approach (ICD-10-PCS; principal; 2016-12-01 07:30)
PROC: 5A1D70Z Performance of Urinary Filtration, Intermittent, Less than 6 Hours Per Day (ICD-10-PCS; 2016-12-03)
PROC: 5A1D70Z Performance of Urinary Filtration, Intermittent, Less than 6 Hours Per Day (ICD-10-PCS; 2016-12-05)
PROC: 5A1D70Z Performance of Urinary Filtration, Intermittent, Less than 6 Hours Per Day (ICD-10-PCS; 2016-12-07)
PROC: 5A1D70Z Performance of Urinary Filtration, Intermittent, Less than 6 Hours Per Day (ICD-10-PCS; 2016-12-10)
PROC: 5A1D70Z Performance of Urinary Filtration, Intermittent, Less than 6 Hours Per Day (ICD-10-PCS; 2016-12-12)
DX: A41.9 Sepsis, unspecified organism (principal); K85.10 Biliary acute pancreatitis without necrosis or infection; E43 Unspecified severe protein-calorie malnutrition; I13.2 Hypertensive heart and chronic kidney disease with heart failure and with stage 5 chronic kidney disease, or end stage renal disease; N17.9 Acute kidney failure, unspecified; K80.01 Calculus of gallbladder with acute cholecystitis with obstruction; D69.6 Thrombocytopenia, unspecified; E11.21 Type 2 diabetes mellitus with diabetic nephropathy; N18.6 End stage renal disease; E87.2 Acidosis; E87.1 Hypo-osmolality and hyponatremia; K56.7 Ileus, unspecified; E11.22 Type 2 diabetes mellitus with diabetic chronic kidney disease; E11.42 Type 2 diabetes mellitus with diabetic polyneuropathy; D53.9 Nutritional anemia, unspecified; E66.01 Morbid (severe) obesity due to excess calories; Z79.84 Long term (current) use of oral hypoglycemic drugs; E03.9 Hypothyroidism, unspecified; D63.1 Anemia in chronic kidney disease; F17.210 Nicotine dependence, cigarettes, uncomplicated; I25.10 Atherosclerotic heart disease of native coronary artery without angina pectoris; I50.9 Heart failure, unspecified; J44.9 Chronic obstructive pulmonary disease, unspecified; K76.0 Fatty (change of) liver, not elsewhere classified; E78.5 Hyperlipidemia, unspecified; Z68.32 Body mass index [BMI] 32.0-32.9, adult; I25.2 Old myocardial infarction; Z83.3 Family history of diabetes mellitus; Z82.49 Family history of ischemic heart disease and other diseases of the circulatory system; Z86.718 Personal history of other venous thrombosis and embolism; Z90.710 Acquired absence of both cervix and uterus; Z95.5 Presence of coronary angioplasty implant and graft; Z99.2 Dependence on renal dialysis
CPT/HCPCS: 36415; 74000; 74022; 74176; 74181; 76700; 80048; 80053; 80069; 80076; 81001; 82150; 82306; 82607; 82728; 82746; 82962; 83036; 83540; 83550; 83605; 83690; 83735; 83970; 84100; 84443; 84550; 85025; 85610; 86704; 86706; 87040; 87077; 87086; 87106; 87186; 87340; 88304; 88305; 90686; 93005; 96361; 96374; 96375; 96376; J0171; J0882; J1100; J1644; J1756; J1815; J2250; J2405; J2543; J2550; J2704; J3010; J3490; Q0162; J0330; J1450; J2270; J7030; S0028; S0074